=== PATIENT | male | born 1955 | race Caucasian/White ===

== ENCOUNTER 2021-05-20 10:14 | Emergency (ER) | payer MEDICARE, BC ==
[~2021-05-20] VITALS: Ht 182.9 cm; Wt 84.1 kg
[2021-05-20] VITALS (7 sets, daily range): BP systolic 135–154; BP diastolic 75–85
[2021-05-20] MEDS ORDERED: LORazepam 2 mg/ml vial IV ONE (16:25)
[2021-05-20] MEDS ORDERED: glucagon, human recombinant 1mg kit IV ONE (16:25)
[2021-05-20] MEDS ORDERED: famotidine/PF 10 mg/ml inj IV ONE (16:25)
[2021-05-20] MEDS ORDERED: normal saline 1000ML IV soln IVB ONE (16:25)
[2021-05-20] MEDS ORDERED: normal saline 1000ml 1,000 ML IV ONE (16:25)
[2021-05-20] MEDS ORDERED: pantoprazole 40 MG vial IV ONE (16:25)
[2021-05-20] MEDS ORDERED: metoclopramide 5 mg/ml inj IV ONE (16:25)
[2021-05-20] MEDS ORDERED: RAMI10CA69 PO (16:39)
[2021-05-20] MEDS ORDERED: EMPA25TA PO (16:39)
[2021-05-20] MEDS ORDERED: GLIM4TAB7 PO (16:39)
[2021-05-20] MEDS ORDERED: PANT40TA54 PO (16:39)
[2021-05-20] MEDS ORDERED: ATOR20TA66 PO (16:39)
[2021-05-20] MEDS ORDERED: METF-1203 PO (16:39)
[2021-05-20] MEDS ORDERED: fentaNYL/PF 50MCG/1 ML 2ML syringe ONE (17:04)
[2021-05-20] MEDS ORDERED: MIDAZolam 1 MG/ML 5ML VIAL ONE (17:04)
[2021-05-20] MEDS ORDERED: LIDOcaine Viscous 15ml cup ONE (17:04)
[2021-05-20] MEDS ORDERED: PANT-47 PO (18:24)
== END 2021-05-20 19:14 | disposition home or self-care (01) ==
LOC: ER 10:15
DX: T18.128A Food in esophagus causing other injury, initial encounter (principal); X58.XXXA Exposure to other specified factors, initial encounter; Y93.89 Activity, other specified; Y92.89 Other specified places as the place of occurrence of the external cause; Y99.8 Other external cause status; Z91.013 Allergy to seafood; Z91.041 Radiographic dye allergy status; Z79.899 Other long term (current) drug therapy
CPT/HCPCS: 43239; 43247; 82948; 96361; 96374; 96375; 99152; 99285; C1769; C9113; J2250; J2765; J3010; J3490; J7030; Z7512; 88305; 88313; 88342; 99284; A4620

== ENCOUNTER 2023-01-12 04:42 | Emergency (ER) | payer MEDICARE, OTHER ==
[~2023-01-12] VITALS: Ht 185.4 cm; Wt 85.0 kg
[~2023-01-12 04:42] MED LIST: ATOR20TA66 PO; EMPA25TA PO; GLIM4TAB7 PO; METF-1203 PO; PANT-47 PO; PANT40TA54 PO; RAMI10CA69 PO
[2023-01-12 04:45] VITALS: BP 148/97
[2023-01-12] MEDS ORDERED: amox tr/potassium clavulanate 875/125mg TAB PO ONE (06:55)
[2023-01-12] MEDS ORDERED: acetaminophen 325mg tablet PO ONE (06:55)
[2023-01-12] MEDS ORDERED: predniSONE 20 mg tablet PO ONE (06:55)
[2023-01-12] MEDS ORDERED: ipratropium/albuterol 3ml nebule NEB ONE (06:55)
[2023-01-12 08:00] LABS: BASOPHILS % (AUTO) 0.6 % (0-1); EOSINOPHILS # (AUTO) 0.1 X10'3 (0-0.9); EOSINOPHILS % (AUTO) 2.7 % (0-6); HEMATOCRIT 44.6 % (42.0-52.0); HEMOGLOBIN 15.1 g/dl (14.0-17.9); LYMPHOCYTES % (AUTO) 22.8 % (21-51); MEAN CORPUSCULAR HEMOGLOBIN 32.8 PG (27.0-31.0); MEAN CORPUSCULAR HGB CONC 33.9 g/dL (33.0-36.5); MEAN CORPUSCULAR VOLUME 96.9 FL (78-98); MEAN PLATELET VOLUME 7.1 FL (7.4-10.4); MONOCYTES # (AUTO) 1.3 X10'3 (0-0.9); MONOCYTES % (AUTO) 28.2 % (2-12); NEUTROPHILS # (AUTO) 2.1 X10'3 (1.8-7.7); NEUTROPHILS % (AUTO) 45.7 % (42-75); PLATELET COUNT 202 X10'3 (140-440); RED CELL DISTRIBUTION WIDTH 13.2 % (11.5-14.5); WHITE BLOOD COUNT 4.6 X10'3 (4.5-11.0)
[2023-01-12 08:12] LABS: ALANINE AMINOTRANSFERASE 32 U/L (12-78); ALBUMIN 3.1 G/DL (3.4-5.0); ALBUMIN/GLOBULIN RATIO 0.8 (1.1-1.5); ALKALINE PHOSPHATASE 69 IU/L (46-116); ANION GAP 13 (8-16); ASPARTATE AMINO TRANSFERASE 32 U/L (10-37); BILIRUBIN,TOTAL 0.4 MG/DL (0.1-1.0); BLOOD UREA NITROGEN 20 MG/DL (7-18); CALCIUM 8.5 MG/DL (8.5-10.1); CHLORIDE 101 MMOL/L (99-107); CREATININE 0.77 MG/DL (0.60-1.10); GLUCOSE 123 MG/DL (70-104); POTASSIUM 4.3 MMOL/L (3.5-5.1); SODIUM 136 MMOL/L (135-145); TOTAL CARBON DIOXIDE 21.9 MMOL/L (24-32); TOTAL PROTEIN 6.8 G/DL (6.4-8.2); eGFR > 90 ML/MIN
[2023-01-12] MEDS ORDERED: AMOX-117 PO (08:12)
[2023-01-12] MEDS ORDERED: BUDE10.7 INH (08:12)
[2023-01-12] MEDS ORDERED: IBUP-1985 PO (08:12)
[2023-01-12] MEDS ORDERED: GUAI118S42 PO (08:12)
[2023-01-12 08:28] LABS: NUCLEATED RED BLOOD CELLS 1 /100WBC (0-0); TOTAL CELLS COUNTED 100
[2023-01-12 08:31] LABS: PLATELET ESTIMATE NORMAL
== END 2023-01-12 08:44 | disposition home or self-care (01) ==
LOC: ER 04:42
DX: J06.9 Acute upper respiratory infection, unspecified (principal); J40 Bronchitis, not specified as acute or chronic; E11.9 Type 2 diabetes mellitus without complications; Z91.041 Radiographic dye allergy status; Z91.013 Allergy to seafood
CPT/HCPCS: 71045; 80053; 83880; 85007; 85025; 93005; 94640; 99285; J7512; 94760